=== PATIENT | female | born 1965 | race Caucasian/White ===

== ENCOUNTER 2022-03-15 12:40 | Outpatient (CLI) | payer OTHER | END 2022-03-15 12:41 | disposition home or self-care (01) | LOC: BICCT 12:40 | PROVIDERS: ATTEND Nurse Practitioner Adult Health | DX: E78.5 Hyperlipidemia, unspecified (principal); I25.10 Atherosclerotic heart disease of native coronary artery without angina pectoris | CPT/HCPCS: 75571 ==

== ENCOUNTER 2022-12-13 12:15 | Outpatient (CLI) | payer OTHER | END 2022-12-13 12:16 | disposition home or self-care (01) | LOC: ULT 12:15 | PROVIDERS: ATTEND Nurse Practitioner Family | DX: N92.4 Excessive bleeding in the premenopausal period (principal); N94.6 Dysmenorrhea, unspecified; N93.9 Abnormal uterine and vaginal bleeding, unspecified; D25.9 Leiomyoma of uterus, unspecified | CPT/HCPCS: 76856; 93976 ==